=== PATIENT | female | born 1940 | race Caucasian/White ===

== ENCOUNTER 2024-09-17 22:21 | Emergency (ER) | payer OTHER ==
[~2024-09-17] VITALS: Ht 162.6 cm; Wt 73.5 kg
--- NOTE | 2024-09-17 23:23 | NUR ---
PATIENT TAKEN TO CT SCAN.
[2024-09-17] MEDS: ondanSETRON 4MG INJ IVP ONE (23:43)
[2024-09-17] MEDS: morPHINE 4 MG SYG IVP ONE (23:44)
--- NOTE | 2024-09-18 00:08 | HMCIMG ---
FEMUR 2 VW LEFT HISTORY: Pain COMPARISON: None TECHNIQUE: 4 images of left femur were obtained. FINDINGS: Total left knee replacement changes are seen. There is no acute displaced fracture or dislocation. Degenerative changes are seen. IMPRESSION: 1. Findings as described above.
--- NOTE | 2024-09-18 00:26 | HMCIMG ---
CT CHEST W/O CONTRAST HISTORY: Pain, status post fall COMPARISON: None TECHNIQUE: Multiple sequential axial images of the chest were obtained from the thoracic inlet through upper abdomen. Patient was not given contrast through intravenous route. FINDINGS: There are small bilateral pleural effusion with left more than right with compressive atelectasis. 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 Coronary arterial calcifications are seen. COPD changes are seen. Nodular density is seen in the left upper lobe measuring 3 cm may be related to infiltrates with mass lesion not excluded. Follow-up examination is recommended. No pleural effusion or pericardial effusion is seen. There is no evidence of pneumothorax. There are normal size mediastinal and hilar lymph nodes. The heart is not enlarged. Degenerative changes of the thoracolumbar spine are present. There is no evidence of adrenal nodule. IMPRESSION: 1. Small bilateral pleural effusions with compressive atelectasis. Nodular density is seen in the left upper lobe measuring 3 cm may be related to infiltrates with mass lesion not excluded. Follow-up examination is recommended. CT was performed with one or more following dose reduction techniques: automated exposure control, adjustment of the mA and kv according to patient's size, or use of a iterative reconstruction technique.
--- NOTE | 2024-09-18 00:54 | NUR ---
[employer] AT BEDSIDE.
--- NOTE | 2024-09-18 00:59 | ERN ---
ED Note History of Present Illness Stated Complaint: C/O PAIN TO HEAD,PAIN TO LEFT RIB AREA,AND BACK Chief Complaint: Mechanical Fall Time Seen by MD: 23:02 Time Seen by Midlevel: 23:02 Dictation: 83-year-old female presents to the emergency department due to report of having pain to the left hip and the left lateral chest wall due to having sustained a fall inside of her RV 2 days ago. Patient states that as her was breaking she lost her footing and fell backwards striking her hip and chest wall area against a solid object. She denies having sustained any loss of consciousness. Patient states that she is able to recall the whole event. She only reports of pain to the affected areas. At this time, she rates the pain level as an 8/10. Patient denies having any shortness of breath. Upon initial evaluation, the patient presents with a normal neurovascular and neurological examination. 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 Initial Vital Sign VS Vital Signs Date Time Temp Pulse Resp B/P (MAP) Pulse Ox O2 Delivery O2 Flow Rate FiO2 09/17/24 22:23 97.2 62 20 139/77 96 Room Air 09/17/24 23:13 0 21 Physical Exam Dictation General: awake, alert, NAD Head/Face: Normocephalic, atraumatic Eyes: PERRL, EOMI ENT: Oral mucosa moist Neck: Trachea midline, supple Cardiovascular: RRR, no edema Chest: Left lateral and posterior chest wall tenderness that is 100% reproducible with palpation and twisting of the torso. Respiratory: Symmetrical, non-labored Abdomen: Soft, non-tender, non-distended, no guarding. Skin: Warm, dry, good turgor, no rash MS/Extremity: Pulses equal, no cyanosis, neurovascular intact, painful range of motion and tenderness to the left thigh. Normal neurovascular examination Neuro: COAx4, GCS 15, steady gait, Psych: Normal behavior, mood, and affect normal Results (Laboratory/Radiology) X-RAY Comment: X-ray of the left femur with no cortical anomalies or deformities as interpreted by me. CT Scan Comment: CT of the chest without contrast revealing a pleural effusion for which the patient states that she is aware that but no rib fractures as identified by the radiologist. ED Course ED Course Orders Procedure Category Date Status Time Femur 2 Vw Left RAD 09/17/24 Resulted 23:12 Ct Chest W/O Contrast CT 09/17/24 Resulted 23:12 Saline Lock Iv CPOE 09/17/24 Transmitted 23:12 Morphine 4mg Syg PHA 09/17/24 Complete (Morphine 4mg Syg) 23:30 Ondansetron 4mg Inj PHA 09/17/24 Complete (Zofran 4mg Inj) 23:30 Cv Rt Incentive CPOE 09/18/24 Transmitted Spirometry 00:47 Current Medications Medications (Trade) Dose Ordered Sig/Kayleen Route PRN Reason Start Time Stop Time Status Last Admin Dose Admin Morphine Sulfate (morPHINE 4MG SYG) 4 mg ONCE ONCE IVP 09/17/24 23:30 09/17/24 23:31 DC 09/17/24 23:44 Ondansetron HCl (zoFRAN 4MG INJ) 4 mg ONCE ONCE IVP 09/17/24 23:30 09/17/24 23:31 DC 09/17/24 23:43 Vital Signs Date Time Temp Pulse Resp B/P (MAP) Pulse Ox O2 Delivery O2 Flow Rate FiO2 09/18/24 00:08 61 18 160/74 94 Room Air* 0 21 09/17/24 23:13 64 18 152/68 97 Room Air* 0 21 09/17/24 22:23 97.2 62 20 139/77 96 Room Air Medical Decision Making MDM MDM: Differential diagnosis: Multiple rib fractures, chest wall strain, left femur fracture, left thigh sprain. Rationale: Tests considered and ordered secondary to shared decision making include: Previous outside records reviewed: Old ER visits. Risk of complication and/or morbidity or mortality of patient management: None Medications-Per medication reconciliation Need for hospitalization: Patient does not meet criteria for hospitalization. Need for emergency major/minor surgery: No There are no social concerns with this patient. Prescription drug management Prescriptions will include symptomatic care Patient's prior external medical records from other ER visits were reviewed by me as indicated. Prior testing and results from previous visits were reviewed. Prior tests were taken into account with medical decision making and resource utilization, independent historian/historians were used to obtain complete medical history. I independently interpreted the test that were performed, results were reviewed by me and considered findings on radiology if ordered. Medical management and examination interpretation discussions were had by me with other qualified healthcare professionals as indicated for the patient's care. DX & DISP Disposition: Discharge Departure Impression: Primary Impression: Multiple rib fractures Condition: Stable Referrals: SELF,REFERRAL (PCP) Time of Disposition: 00:57 NISA GUERIN Sep 18, 2024 00:58
[2024-09-18 01:32] VITALS: BP 118/68; PULSE 65; RESP 18; TEMP 98.2; O2SAT 98
== END 2024-09-18 01:43 | disposition home or self-care (01) ==
LOC: EDH 22:21
DX: S22.42XA Multiple fractures of ribs, left side, initial encounter for closed fracture (principal); I10 Essential (primary) hypertension; Z86.718 Personal history of other venous thrombosis and embolism; Z88.5 Allergy status to narcotic agent; W18.39XA Other fall on same level, initial encounter; Y93.89 Activity, other specified; Y92.89 Other specified places as the place of occurrence of the external cause; Y99.8 Other external cause status
CPT/HCPCS: 99285; 96374; 71250; 96375; 73552; J2405; J2270